=== PATIENT | female | born 1990 | race Two or more races ===

== ENCOUNTER 2021-07-02 09:29 | Emergency (ER) | payer OTHER ==
[~2021-07-02] VITALS: Ht 157.5 cm; Wt 81.6 kg
[2021-07-02 13:04] VITALS: BP 116/79
== END 2021-07-02 13:30 | disposition home or self-care (01) ==
LOC: ER 09:29
DX: S39.012A Strain of muscle, fascia and tendon of lower back, initial encounter (principal); M25.552 Pain in left hip; M25.551 Pain in right hip; V43.52XA Car driver injured in collision with other type car in traffic accident, initial encounter; Y93.89 Activity, other specified; Y92.410 Unspecified street and highway as the place of occurrence of the external cause; Y99.8 Other external cause status
CPT/HCPCS: 72070; 72100